=== PATIENT | male | born 1975 | race Caucasian/White ===

== ENCOUNTER 2017-01-04 16:03 | Observation (INO) ==
--- NOTE | 2017-01-04 16:19 | Emergency Department Note ---
Abdominal Pain HPI - General Chief Complaint: Abdominal Pain Stated Complaint: Abdominal pain, back pain, bilateral Flank pain Time Seen by Provider: 01/04/17 16:15 Source: patient Mode of arrival: ambulatory Limitations: no limitations - History of Present Illness HPI Narrative: This patient has had abdominal pain for 10 days. An ultrasound last week that showed gallstones with no gallbladder wall thickening that he did have tenderness suggestive of mild cholecystitis. He called Dr. Souza's office on but they were closing so he hasn't seen him yet. He continues to have pain and nausea. MD Complaint: abdominal pain Onset (ago): day(s) Consistency: constant Location: RUQ Severity: moderate Quality: stabbing Radiation: back Improves with: nothing Worsens with: eating - Related Data Home Medications Medication Instructions Recorded Confirmed trazodone 50 mg tablet 75 mg PO QHS tab 10/26/15 01/04/17 Previous Rx's Medication Instructions Recorded lamotrigine 25 mg tablet See Dose Instructions .ROUTE 10/26/15 .COMPLEX #60 tab HYDROcodone/APAP 5/325MG [[place] 1 tab PO Q4HP PRN #14 tablet 12/27/16 5/325Mg] Omeprazole [PriLOSEC] 20 mg PO BIDAC #30 cap 01/01/17 Allergies Allergy/AdvReac Type Severity Reaction Status Date / Time Erythromycin Base Allergy Intermediate Verified 01/04/17 16:07 penicillin V [From Pen-Vee K] AdvReac Intermediate Verified 01/04/17 16:07 Review of Systems Constitutional: Denies: fever, chills Eyes: Denies: eye pain ENT ED: Denies: ear pain Cardiovascular: Denies: chest pain Respiratory: Denies: cough Gastrointestinal: Reports: abdominal pain, nausea, vomiting Genitourinary: Denies: urgency Musculoskeletal: Reports: back pain Integumentary: Denies: rash Neurological: Denies: headache Abdominal Pain PMH - Past Medical History Medical history: Reports: hypertension, migraine, renal disease, seizures, other Surgical history ED: Reports: appendectomy Psychiatric history: Reports: anxiety, bipolar, depression Family history: Reports: no significant family history - Social History Alcohol use: Reports: Heavy Drug use: Reports: none Physical Exam - General Limitations: no limitations General appearance: alert - Head Head exam: atraumatic - Eye Eye exam: Present: normal appearance - ENT ENT exam: normal exam - Neck Neck exam: Present: normal inspection - Chest Chest inspection: Present: normal inspection - Respiratory Respiratory exam: Present: normal lung sounds bilaterally - Cardiovascular Cardiovascular exam: Present: regular rate, normal rhythm, normal heart sounds - Abdominal Exam Abdominal exam: Present: soft, tenderness. Absent: distention, guarding, rebound, rigidity - Neurological Exam Neurological exam: Present: alert - Psychiatric Psychiatric exam: Present: normal affect - Skin Skin exam: Present: warm, dry Course Vital Signs Temperature 97.0 F L 01/04/17 16:04 Pulse Rate 67 01/04/17 16:04 Respiratory Rate 16 01/04/17 16:04 Blood Pressure 144/75 01/04/17 16:04 Pulse Oximetry (%) 99 01/04/17 16:04 Temperature 97.0 F L 01/04/17 16:04 Pulse Rate 56 L 01/04/17 17:52 Respiratory Rate 18 01/04/17 17:52 Blood Pressure 123/85 01/04/17 17:52 Pulse Oximetry (%) 98 01/04/17 17:52 Abdominal Pain - MDM Narrative Medical decision making narrative: I discussed the case with Dr. Souza the patient will be admitted tonight for cholecystectomy in the morning - Lab Data Lab results reviewed: Yes I reviewed the patient's lab results. Result diagrams: 01/04/17 16:27 01/04/17 16:27 Lab Results 01/04/17 01/04/17 01/04/17 Range/Units 16:27 16:27 16:35 WBC 4.8 (4.5-11.0) K/mcL RBC 4.17 L (4.50-5.90) M/mcL Hgb 13.0 L (13.5-16.5) g/dL Hct 39.6 L (41.0-55.0) % MCV 94.8 (80.0-100.0) fL MCH 31.2 (26.0-34.0) pg MCHC 32.9 (31.0-36.0) g/dL RDW 14.0 (11.5-14.5) % Plt Count 118 L (140-440) K/mcL MPV 9.5 (7.4-10.4) fL Gran % 64.1 (38.0-78.0) % Lymph % (Auto) 23.8 (15.5-49.0) % [place] % (Auto) 7.0 (1.0-9.0) % Eos % (Auto) 4.2 (0.0-7.0) % Baso % (Auto) 0.9 (0.0-2.0) % Gran # 3.1 (1.8-8.0) K/mcL Lymph # 1.1 L (1.5-4.8) K/mcL [place] # 0.3 (0.1-0.9) K/mcL Eos # 0.2 (0.0-0.7) K/mcL Baso # 0 (0.0-0.3) K/mcL Sodium 137 (133-145) mmol/L Potassium 3.5 (3.3-5.1) mmol/L Chloride 102 (96-108) mmol/L Carbon Dioxide 22 (22-30) mmol/L Anion Gap 13.0 (8-16) BUN 3 L (6-20) mg/dl Creatinine 0.7 (0.7-1.2) mg/dl GFR Calculation 117 Glucose 96 (70-105) mg/dL Calcium 8.7 (8.6-10.4) mg/dl Total Bilirubin 1.3 H (0.0-1.0) mg/dL AST 47 H (0-37) U/l ALT 31 (0-40) U/l Alkaline Phosphatase 152 H (39-117) U/L Total Protein 7.5 (5.9-8.4) gm/dL Albumin 3.7 (3.2-5.2) gm/dL Globulin 3.8 H (2.2-3.7) gm/dL Albumin/Globulin Ratio 1.0 (1.0-2.3) Lipase 35 (7-60) U/L Urine Color Yellow Urine Appearance Clear Urine pH 8.0 (5.0-9.0) Ur Specific [place] 1.002 (1.000-1.035) Urine Protein Neg (NEG) mg/dL Urine Glucose (UA) Negative (NEG) mg/dL Urine Ketones Neg (NEG) mg/dL Urine Occult Blood >=1.0 A (<0.03) mg/dL Urine Nitrate Neg (NEG) Urine Bilirubin Neg (NEG) mg/dL Urine Urobilinogen Neg (NEG) mg/dL Ur Leukocyte Esterase Neg (NEG) /uL Urine RBC 18 H (0-1) /hpf Urine WBC 0 (0-4) /hpf Ur Squamous Epith Cells 0 (0-4) /hpf Urine Bacteria 0 (0) /hpf Ur Culture Indicated? No Disposition Clinical Impression: Cholecystitis Disposition: Xfer As Outpt/Obs ([facility]) Condition: Good Time of Disposition: 18:14
[2017-01-04] MEDS ORDERED: 0.9 % SODIUM CHLORIDE 1,000 ML IV ONE (16:20)
[2017-01-04] MEDS ORDERED: ONDANSETRON 4 MG/2 ML VIAL IV ONE (16:20)
[2017-01-04] MEDS: HYDROmorphone 2 MG/ML SYRINGE IV PRN ×3 (16:50→21:47)
[2017-01-04 17:15] LABS: Basophils # (Auto) 0 K/mcL (0.0-0.3); Basophils % (Auto) 0.9 % (0.0-2.0); Eosinophils # (Auto) 0.2 K/mcL (0.0-0.7); Eosinophils % (Auto) 4.2 % (0.0-7.0); Granulocytes % (Auto) 64.1 % (38.0-78.0); Lymphocytes # (Auto) 1.1 K/mcL (1.5-4.8); Lymphocytes % (Auto) 23.8 % (15.5-49.0); Mean Cell Volume 94.8 fL (80.0-100.0); Mean Corpuscular HGB Conc 32.9 g/dL (31.0-36.0); Mean Corpuscular Hemoglobin 31.2 pg (26.0-34.0); Monocytes # (Auto) 0.3 K/mcL (0.1-0.9); Platelet Count 118 K/mcL (140-440); RBC 4.17 M/mcL (4.50-5.90)
[2017-01-04 17:25] LABS: Appearance,Urine CLEAR; Bacteria,Urine 0 /hpf (0); Bilirubin,Urine NEG (NEG); Color,Urine YELLOW; Glucose,Urine (UA) NEGATIVE (NEG); Leukocyte Esterase,Urine NEG /uL (NEG); Nitrate,Urine NEG (NEG); Protein,Urine NEG (NEG); Specific Gravity,Urine 1.002 (1.000-1.035); Urine Blood >=1.0 mg/dL (<0.03); Urine RBC 18 /hpf (0-1); Urine Squamous Epithelial Cell 0 /hpf (0-4); Urine WBC 0 /hpf (0-4); Urobilinogen,Urine NEG (NEG)
[2017-01-04 17:25] LABS: ALT/SGPT 31 U/l (0-40); Albumin 3.7 gm/dL (3.2-5.2); Alkaline Phosphatase 152 U/L (39-117); Blood Urea Nitrogen 3 mg/dl (6-20); Lipase 35 U/L (7-60)
[2017-01-04] MEDS ORDERED: HYDROcodone/APAP (PP) 5/325MG TABLET (#4) PO ONE (18:00)
[2017-01-04] MEDS ORDERED: ONDANSETRON (PP) 4 MG TABLET SL ONE (18:00)
[2017-01-04] MEDS ORDERED: LEVOFLOXACIN 500 MG/100 ML BAG IV ONE (18:14)
[2017-01-04] MEDS ORDERED: HYDROmorphone 2 MG/ML SYRINGE IV PRN (20:01)
[2017-01-04] MEDS ORDERED: PROMETHAZINE 25 MG/ML VIAL IM PRN (20:54)
[2017-01-04] MEDS ORDERED: PANTOPRAZOLE 80 MG in 0.9 % SODIUM CHLORIDE 100 ML IV SCH (21:00)
[2017-01-04] MEDS ORDERED: chlordiazePOXIDE 25 MG CAPSULE PO PRN (21:04)
[2017-01-04] MEDS ORDERED: MAGNESIUM SULFATE 32.48 MEQ in DEXTROSE 5% IN WATER 50 ML IV PRN (21:06)
[2017-01-04] MEDS ORDERED: POTASSIUM PHOSPHATE 40 MEQ in DEXTROSE 5% IN WATER 500 ML IV PRN (21:07)
[2017-01-04] MEDS ORDERED: PROMETHAZINE 25 MG/ML VIAL IV PRN (21:15)
--- NOTE | 2017-01-04 21:21 | XRay Report ---
CLINICAL INFORMATION: Preop COMPARISON: None. FINDINGS:The heart size, mediastinum and pulmonary vessels are unremarkable. The lungs are clear. There are no effusions. The bones and soft tissues are within normal limits. IMPRESSION: Normal chest. Interpreted and Authenticated by: Evelio Monet 01/04/17
[2017-01-04 21:24] LABS: Magnesium 1.7 mg/dL (1.6-2.5); Phosphorous 2.6 mg/dL (2.7-4.5)
[2017-01-04] MEDS: 0.9 % SODIUM CHLORIDE 1,000 ML IV SCH (21:46)
[2017-01-04] MEDS: PANTOPRAZOLE 40 MG VIAL IV SCH (21:47)
[2017-01-04] MEDS ORDERED: MAGNESIUM SULFATE 8.12 MEQ/2 ML VIAL ONE (21:59)
[2017-01-05] MEDS: HYDROmorphone 2 MG/ML SYRINGE IV PRN ×6 (00:07→16:41)
[2017-01-05] MEDS: 0.9 % SODIUM CHLORIDE 1,000 ML IV SCH ×5 (04:04→21:39)
[2017-01-05 06:05] LABS: Basophils # (Auto) 0 K/mcL (0.0-0.3); Basophils % (Auto) 0.9 % (0.0-2.0); Eosinophils # (Auto) 0.2 K/mcL (0.0-0.7); Eosinophils % (Auto) 5.2 % (0.0-7.0); Lymphocytes # (Auto) 1.7 K/mcL (1.5-4.8); Lymphocytes % (Auto) 35.8 % (15.5-49.0); Mean Cell Volume 95.7 fL (80.0-100.0); Mean Corpuscular Hemoglobin 31.6 pg (26.0-34.0); Monocytes # (Auto) 0.4 K/mcL (0.1-0.9); Monocytes % (Auto) 9.1 % (1.0-9.0); Platelet Count 95 K/mcL (140-440); RBC 3.71 M/mcL (4.50-5.90); Red Cell Distribution Width 13.8 % (11.5-14.5)
[2017-01-05 06:46] LABS: ALT/SGPT 24 U/l (0-40); Albumin/Globulin Ratio 0.9 (1.0-2.3); Alkaline Phosphatase 106 U/L (39-117); Blood Urea Nitrogen 4 mg/dl (6-20)
[2017-01-05] MEDS ORDERED: 0.9 % SODIUM CHLORIDE 250 ML IV SCH ×2 (09:00→15:22)
[2017-01-05] MEDS: PANTOPRAZOLE 40 MG VIAL IV SCH (09:34)
--- NOTE | 2017-01-05 09:47 | General Surg History&Physical ---
History of Present Illness Patient information: Note initiated : 01/05/17 at 9:45 am Service Date, if different from initiated Date: [] Patient: Austin Kelley 41 y/o M admitted on 01/04/17 for Abdominal pain, back pain, bilateral Flank pain. Chief Complaint: [] Chief complaint: recurrent abdominal pain HPI: Mr. Kelley is a 41 year old male with known history of gallstone disease. Patient has had symptomatic cholelithiasis for at least 1 year. He did not have any surgery done. Over the past 2 weeks he has had bilateral upper abdominal pain radiating through to his back and localizing in the right upper quadrant. He has had nausea but no vomiting. The pain has been continuous.. He's been seen in the emergency room twice over the last 2 days and his symptoms persist. He has elevated LFTs but he also has a history of alcoholic hepatitis cirrhosis unknown if this is related to his gallbladder. His amylase is normal. Patient admitted and will have a cholecystmy today. Because of some revascularization of his abdominal wall and prior history of a midline incision he is counseled for possible open procedure. Review of Systems - Constitutional fatigue, malaise, weakness, weight loss - EENT Nose, mouth and throat: dizziness, headache(s), no abnormal hearing - Cardiovascular no chest pain with activity, no dyspnea on exertion, no palpatations, no syncope - Respiratory cough, no dyspnea on exertion, no wheezing, no chest congestion - Gastrointestinal abdominal pain, cramping, dyspepsia, heartburn, nausea, vomiting - Genitourinary hematuria, no dysuria, no urinary frequency, no urinary hesitancy, no urinary incontinence, no urinary urgency - Musculoskeletal arthralgias, back pain, myalgias, stiffness, no abnormal gait - Integumentary no new lesions, no pruritus, no rash, no striae, no wounds - Neurological behavioral changes, headache(s), tremor(s), weakness, no abnormal hearing, no syncope - Psychiatric abnormal sleep pattern, anxiety, depression, mood swings - Endocrine fatigue, palpitations, no polydipsia, no polyphagia, no polyuria - Hematologic/Lymphatic no easy bleeding, no easy bruising, no lymphadenopathy - Allergic/Immunologic throat swelling, no tongue swelling, no uticaria, no wheezing, no lip swelling Past History Past medical history: bipolar disorder History of seizures probably alcohol-related Lower extremity radiculopathy History of chronic alcoholism Migraine headaches Mild portal hypertension Lumbar disc disease Hepatosplenomegaly Probable alcoholic liver disease Past surgical history: appendectomy Open treatment and internal fixation left arm Past family history: father due to complications of AIDS Mother due to glioblastoma multiform only child Past social history: ssingle Every day smoker Everyday marijuana user History of alcoholism up to a half gallon per day; states that he stopped in October; unable to verify unemployed Medications and Allergies Home Medications Medication Instructions Recorded Confirmed Type trazodone 50 mg tablet 75 mg PO QHS tab 10/26/15 01/04/17 History HYDROcodone/ACETAMINOPHEN 1 each PO Q4-6HP PRN 01/05/17 01/05/17 History [Hydrocodon-Acetaminophen 5-325] Allergies Allergy/AdvReac Type Severity Reaction Status Date / Time Erythromycin Base Allergy Intermediate Verified 01/04/17 16:07 penicillin V [From Pen-Vee K] AdvReac Intermediate Verified 01/04/17 20:29 Exam Temp Pulse Resp BP Pulse Ox 97.6 F 52 L 16 117/75 97 01/05/17 08:00 01/05/17 08:00 01/05/17 08:00 01/05/17 08:00 01/05/17 08:00 - General physical appearance well developed, no distress, moderate distress, moderate pain, chronically ill, other (vidence of recent weight loss) - Eyes PERRL, normal ocular movement, other (mild icterus) - ENT normal pinna, normal nares, normal mucosa, no hearing loss, no congestion, poor care home - Head Head exam IM: Present: atraumatic, normocephalic - Neck no masses, no bruits, trachea midline, no lymphadectomy, no venous distension - Cardiovascular Cardiovascular exam IM: Present: normal rate and rhythm, JVD, RRR, +S1, +S2. Absent: systolic murmur - Respiratory normal expansion, normal respiratory effort, clear to percussion, clear to auscultation - Abdomen Abdomen: Present: soft, tender (diffuse tenderness and upper abdomen with guarding and rebound in the right upper quadrant; well-healed lower midline incision; redistribution of vascular pattern anterior abdominal wall), bowel sounds Hernia: Present: none - Genitourinary Present: normal penis with no external lesions - Rectum Rectum: Present: no masses - Integumentary Present: no rash, no growths, no abnormal pigmentation - Neurologic Present: normal coordination, normal sensation - Musculoskeletal Present: normal gait, normal posture - Psychiatric Present: oriented to time, oriented to person, oriented to place, speech is normal, memory intact, other (flat affect) Assessment and Plan (1) Cholelithiasis and cholecystitis without obstruction patient counseled for laparoscopic cholecystectomy. He is advi that he may need to have an open procedure. Status: Acute (2) Liver disease, chronic, due to alcohol will treat for delirium tremens if it occurs Status: Acute (3) Portal hypertension Status: Acute (4) Seizure disorder Status: Acute (5) Bipolar disorder Status: Acute
[2017-01-05] MEDS ORDERED: MIDAZOLAM 5 MG/5 ML VIAL IV ONE (11:15)
[2017-01-05] MEDS ORDERED: ROCURONIUM 10 MG/ML ML IV ONE (11:15)
[2017-01-05] MEDS ORDERED: SUCCINYLCHOLINE 20 MG/ML ML IV ONE (11:15)
[2017-01-05] MEDS ORDERED: ONDANSETRON 4 MG/2 ML VIAL IV ONE (11:15)
[2017-01-05] MEDS ORDERED: GLYCOPYRROLATE 0.2 MG/ML VIAL IV ONE (11:15)
[2017-01-05] MEDS ORDERED: fentaNYL 250 MCG/5 ML VIAL IV ONE (11:15)
[2017-01-05] MEDS ORDERED: DEXAMETHASONE 10 MG/ML VIAL IV ONE (11:15)
[2017-01-05] MEDS ORDERED: PROPOFOL 200 MG/20 ML VIAL IV ONE (11:15)
[2017-01-05] MEDS ORDERED: LIDOCAINE HCL/PF 100 MG/5 ML SYRINGE IV ONE (11:15)
[2017-01-05] MEDS ORDERED: KETAMINE 100 MG/ML ML IV ONE (11:15)
[2017-01-05] MEDS ORDERED: METHOCARBAMOL 1,000 MG/10 ML VIAL IV PRN (12:35)
[2017-01-05] MEDS ORDERED: ePHEDrine 50 MG/ML AMPUL IV PRN (12:35)
[2017-01-05] MEDS ORDERED: FLUMAZENIL 0.1 MG/ML ML IV PRN (12:35)
[2017-01-05] MEDS ORDERED: METOPROLOL TARTRATE 5 MG/5 ML VIAL IV PRN (12:35)
[2017-01-05] MEDS ORDERED: MEPERIDINE 25 MG/ML SYRINGE IV PRN (12:35)
[2017-01-05] MEDS ORDERED: PROMETHAZINE 25 MG/ML VIAL IV PRN ×3 (12:35→15:22)
[2017-01-05] MEDS ORDERED: HYDROmorphone 2 MG/ML SYRINGE IV PRN (12:35)
[2017-01-05] MEDS ORDERED: ONDANSETRON 4 MG/2 ML VIAL IV PRN (12:35)
[2017-01-05] MEDS ORDERED: ATROPINE SULFATE 0.4 MG/ML VIAL IV PRN (12:35)
[2017-01-05] MEDS ORDERED: PROMETHAZINE 25 MG/ML VIAL IM ONE (12:35)
[2017-01-05] MEDS ORDERED: diphenhydrAMINE 50 MG/ML VIAL IV PRN (12:35)
[2017-01-05] MEDS ORDERED: IPRATROPIUM/ALBUTEROL 3 ML AMPUL.NEB NEB PRN (12:35)
[2017-01-05] MEDS ORDERED: NALOXONE HCL 0.4 MG/ML VIAL IV PRN (12:35)
[2017-01-05] MEDS ORDERED: BENZOCAINE/MENTHOL 1 LOZENGE PO PRN (12:35)
[2017-01-05] MEDS ORDERED: MEPERIDINE 50 MG/ML SYRINGE IM ONE (12:35)
[2017-01-05] MEDS ORDERED: LACTATED RINGERS 1,000 ML IV SCH (12:45)
--- NOTE | 2017-01-05 13:30 | Brief Operative Note ---
Date of procedure: 01/05/17 Pre-op diagnosis: cholelithiasis with cholecystitis Post-op diagnosis: other (cholelithiasis with cholecystitis; micronodular cirrhosis,portal hypertension) Procedure: laparoscopic cholecystectomy Grafts/Implants: No (j p x1) Anesthesia: GETA Findings: severe micronodular cirrhosis ; acute and chronic cholecystitis; upper abdominal adhesions Complications: none Surgeon: Wendi Souza Estimated blood loss (cc): 30 Specimens Removed/Pathology: other (gajjbladder) Condition: stable Disposition: PACU
[2017-01-05] MEDS: fentaNYL 100 MCG/2 ML VIAL IV PRN ×4 (14:11→14:25)
[2017-01-05] MEDS ORDERED: POTASSIUM PHOSPHATE 40 MEQ in DEXTROSE 5% IN WATER 500 ML IV PRN (15:22)
[2017-01-05] MEDS ORDERED: MAGNESIUM SULFATE 32.48 MEQ in DEXTROSE 5% IN WATER 50 ML IV PRN (15:22)
[2017-01-05] MEDS ORDERED: chlordiazePOXIDE 25 MG CAPSULE PO PRN (15:22)
--- NOTE | 2017-01-05 15:51 | Operative Note ---
DATE OF OPERATION: 01/05/2017 PREOPERATIVE DIAGNOSIS: Cholelithiasis with cholecystitis. POSTOPERATIVE DIAGNOSES: Cholelithiasis with cholecystitis, micronodular cirrhosis, portal hypertension. PROCEDURE: Laparoscopic cholecystectomy. SURGEON: Wendi Souza MD. ANESTHESIA: General endotracheal anesthesia. FINDINGS: Severe micronodular cirrhosis, acute and chronic cholecystitis, mid and upper abdominal adhesions. DESCRIPTION OF PROCEDURE: Under general anesthesia, the patient's abdomen was prepped and draped in the sterile field. A timeout procedure was carried out as per protocol. A supraumbilical midline incision was made. The fascia was opened because of the previous incision. The fascia was dissected down to the omentum. Even after getting down to the omentum, I could not get a free peritoneal space. I therefore made a small incision in the left upper quadrant after the stomach had been desufflated. Veress needle was passed and the peritoneal cavity was successfully entered. The abdomen was insufflated with 3.5 liters of CO2. Once this was done, the peritoneum thinned through the incision, and I was able to make a small incision in the visible peritoneum, and the free peritoneal space was entered. A 12 mm trocar was placed and laparoscope was placed. The patient had severe micronodular cirrhosis with a contracted hard, fibrotic liver and evidence of subacute cholecystitis. Under videoscopic guidance, a 12 mm port and two 5 mm ports were placed in the right subcostal region. The gallbladder was grasped and positioned. Using gentle dissection, the cystic duct was dissected and followed back to the gallbladder. Cystic artery branch was dissected and followed onto the wall of the gallbladder. The cystic duct was then clipped with five clips and divided close to the gallbladder. There were two cystic artery branches that were dissected onto the wall of the gallbladder, clipped with three clips each and divided. Next, using electrocautery and staying very close to the gallbladder and away from the hard, friable liver, the gallbladder was dissected. There were two arterial branches that followed posteriorly and near the tip of the gallbladder. One of these arteries was transected. It was clipped proximal to the incision in the vessel and hemostasis was controlled. The gallbladder was then from the infrahepatic bed. There was a major amount of oozing, but the patient had elevated protime. Irrigation was carried out. It was elected not to place Surgicel in the bed in case the patient presented with postoperative fever and concern for abscess. Most of the bed was hemostatically okay, but there was some oozing from the surface of the liver. He did show evidence of clotting, so a smooth 10-flat drain was placed and brought out through the most lateral incision. CO2 was allowed to escape from the abdomen, and the ports were removed. Peritoneum and fascia at the supraumbilical area was closed with multiple interrupted 0 Vicryls. Other incisions were closed with yuriy. The patient tolerated the procedure well. The drain was secured with 2-0 nylon. Tegaderm dressings were placed. The patient was awakened, extubated and transferred to the postanesthetic care unit in stable, satisfactory condition. LCS:hi Job ID: [id number] Doc ID: [id number] Wendi Souza M.D.
[2017-01-05] MEDS: oxyCODONE HCL 5 MG TABLET PO PRN ×2 (16:20→20:29)
[2017-01-05] MEDS: NICOTINE 21 MG PATCH TOPICAL SCH (16:20)
[2017-01-05] MEDS: PANTOPRAZOLE 40 MG PACKET PO SCH (16:20)
[2017-01-05 16:41] LABS: ALT/SGPT 29 U/l (0-40); Albumin 3.5 gm/dL (3.2-5.2); Alkaline Phosphatase 110 U/L (39-117); Blood Urea Nitrogen 4 mg/dl (6-20)
[2017-01-05] MEDS: LEVOFLOXACIN 750 MG/150 ML BAG IV SCH (16:45)
[2017-01-05] MEDS ORDERED: PANTOPRAZOLE 40 MG PACKET PO SCH (17:00)
[2017-01-05 18:15] LABS: Basophils # (Auto) 0 K/mcL (0.0-0.3); Basophils % (Auto) 0.6 % (0.0-2.0); Eosinophils # (Auto) 0.1 K/mcL (0.0-0.7); Eosinophils % (Auto) 1.9 % (0.0-7.0); Lymphocytes # (Auto) 0.3 K/mcL (1.5-4.8); Lymphocytes % (Auto) 8.8 % (15.5-49.0); Mean Cell Volume 95.7 fL (80.0-100.0); Mean Corpuscular HGB Conc 32.9 g/dL (31.0-36.0); Mean Corpuscular Hemoglobin 31.5 pg (26.0-34.0); Monocytes # (Auto) 0.1 K/mcL (0.1-0.9); Monocytes % (Auto) 1.7 % (1.0-9.0); Platelet Count 96 K/mcL (140-440); Red Cell Distribution Width 14.1 % (11.5-14.5)
[2017-01-05] MEDS: traZODone HCL 50 MG TABLET PO SCH (20:30)
[2017-01-05] MEDS ORDERED: traZODone HCL 50 MG TABLET PO SCH (21:00)
[2017-01-06] MEDS: oxyCODONE HCL 5 MG TABLET PO PRN ×6 (00:43→21:58)
[2017-01-06] MEDS: 0.9 % SODIUM CHLORIDE 1,000 ML IV SCH ×3 (04:28→23:04)
[2017-01-06 06:03] LABS: Basophils # (Auto) 0 K/mcL (0.0-0.3); Basophils % (Auto) 0 % (0.0-2.0); Eosinophils # (Auto) 0.1 K/mcL (0.0-0.7); Eosinophils % (Auto) 0.6 % (0.0-7.0); Granulocytes % (Auto) 92.1 % (38.0-78.0); Lymphocytes # (Auto) 0.4 K/mcL (1.5-4.8); Lymphocytes % (Auto) 4.6 % (15.5-49.0); Mean Cell Volume 95.9 fL (80.0-100.0); Mean Corpuscular HGB Conc 32.8 g/dL (31.0-36.0); Mean Corpuscular Hemoglobin 31.4 pg (26.0-34.0); Monocytes # (Auto) 0.2 K/mcL (0.1-0.9); Monocytes % (Auto) 2.7 % (1.0-9.0); Platelet Count 104 K/mcL (140-440); RBC 3.99 M/mcL (4.50-5.90); Red Cell Distribution Width 13.8 % (11.5-14.5)
[2017-01-06] MEDS: PANTOPRAZOLE 40 MG PACKET PO SCH ×2 (07:30→17:52)
[2017-01-06] MEDS: LEVOFLOXACIN 750 MG/150 ML BAG IV SCH (09:26)
[2017-01-06] MEDS: NICOTINE 21 MG PATCH TOPICAL SCH (09:26)
[2017-01-06] MEDS: HYDROmorphone 2 MG/ML SYRINGE IV PRN (10:29)
[2017-01-06] MEDS ORDERED: 0.9 % SODIUM CHLORIDE 250 ML IV SCH (11:15)
--- NOTE | 2017-01-06 13:25 | Surgical Pathology Report ---
HISTOLOGY SPECIMEN MICROSCOPIC DIAGNOSIS GALLBLADDER, CHOLECYSTECTOMY: -- SUBACUTE AND CHRONIC CHOLECYSTITIS WITH CHOLELITHIASIS. (ACP:jose) PROCEDURAL IMPRESSION Cholelithiasis and cholecystitis. GROSS DESCRIPTION Received in formalin labeled gallbladder, is an 11.3 x 4.9 x 0.7 cm pink-tom gallbladder. The serosa is smooth and glistening with approximately 20% rough and brown-tom. There are multiple yuriy present. The duct is disrupted and opened to approximately 1.6 cm in diameter. The mucosa is velvety, pink-tom with no lesions or masses identified. The wall is up to 0.3 cm thick. Three smooth, black stones are found within the specimen container ranging in size from 0.2 up to 0.8 cm in greatest dimension. Sprinkler Driver sections are submitted in one cassette. (KGW:adj) Electronically Signed by: Miguel Monzon M.D.
--- NOTE | 2017-01-06 17:48 | General Surgery Progress Note ---
Subjective Patient reports: feels better, pain is less, tolerating a regular diet, flatus, bowel movement, afebrile Narrative: Note initiated : 01/06/17 at 5:45 pm Service Date, if different from initiated Date: [] Patient: Austin Kelley 41 y/o M admitted on 01/04/17 for Cholelithiasis & Cholecystitis w/o Obstruction. Chief Complaint: [patient is stable and improved. He is tolerating diet without difficulty. His PT/INR remains elevated and he had more thick bloody drainage this morning. He has received 2 more units of FFP and his drainageis more serous at this time. ] Objective Temp Pulse Resp BP Pulse Ox 99.5 F 75 14 120/63 95 01/06/17 11:20 01/06/17 11:20 01/06/17 11:20 01/06/17 11:20 01/06/17 11:20 - Additional Data Intake & Output - Last 24 hours: Intake & Output 01/04/17 01/05/17 01/06/17 01/07/17 05:59 05:59 05:59 05:59 Intake Total 1000 / 2100 8513 / 8513 2827 / 2827 Output Total 8043 / 8043 3865 / 3865 Balance 1000 / 2100 470 / 470 -1038 / -1038 Weight 242 lb 247 lb 8 oz 247 lb 8 oz - Additional Exam patient is alert awake and appropriate Chest clear Heart regular no ectopy or gallop Abdomen mildly distended but soft with active bowel sounds, serosanguineous CEDRICK drainage but much thinner than earlier this morning extremities no increased edema - Labs 01/06/17 04:20 01/05/17 13:55 Medical - PN: A/P - Time Spent With Patient Total time spent is greater than 50% in coordination of care (as documented) at patient's floor/unit and/or counseling patient: (1) Cholelithiasis and cholecystitis without obstruction Status: Acute Assessment and plan: stable and improved We'll check PT/INR in the morning and if improved we'll consider discharge home Current Visit: Yes (2) Liver disease, chronic, due to alcohol Status: Acute Current Visit: Yes (3) Portal hypertension Status: Acute Current Visit: Yes (4) Seizure disorder Status: Acute Current Visit: Yes (5) Bipolar disorder Status: Acute Current Visit: Yes
[2017-01-06] MEDS ORDERED: 0.9 % SODIUM CHLORIDE 1,000 ML IV SCH (18:45)
[2017-01-06] MEDS: traZODone HCL 50 MG TABLET PO SCH (21:51)
[2017-01-07] MEDS: HYDROmorphone 2 MG/ML SYRINGE IV PRN ×4 (00:40→10:24)
[2017-01-07] MEDS: oxyCODONE HCL 5 MG TABLET PO PRN ×4 (02:01→13:59)
[2017-01-07 05:44] LABS: Basophils # (Auto) 0 K/mcL (0.0-0.3); Basophils % (Auto) 0.2 % (0.0-2.0); Eosinophils # (Auto) 0.2 K/mcL (0.0-0.7); Eosinophils % (Auto) 1.7 % (0.0-7.0); Granulocytes % (Auto) 78.1 % (38.0-78.0); Lymphocytes # (Auto) 1.3 K/mcL (1.5-4.8); Lymphocytes % (Auto) 13.1 % (15.5-49.0); Mean Cell Volume 95.3 fL (80.0-100.0); Mean Corpuscular Hemoglobin 31.4 pg (26.0-34.0); Monocytes # (Auto) 0.7 K/mcL (0.1-0.9); Monocytes % (Auto) 6.9 % (1.0-9.0); Platelet Count 118 K/mcL (140-440); RBC 3.89 M/mcL (4.50-5.90); Red Cell Distribution Width 13.8 % (11.5-14.5)
[2017-01-07] MEDS: PANTOPRAZOLE 40 MG PACKET PO SCH (06:56)
[2017-01-07] MEDS: LEVOFLOXACIN 750 MG/150 ML BAG IV SCH (07:46)
[2017-01-07] MEDS: NICOTINE 21 MG PATCH TOPICAL SCH (09:14)
--- NOTE | 2017-01-07 14:25 | Discharge Summary ---
Providers - Providers Patient information: Note initiated : 01/07/17 at 2:21 pm Service Date, if different from initiated Date: [] Patient: Austin Kelley 41 y/o M admitted on 01/04/17 for Cholelithiasis & Cholecystitis w/o Obstruction. Chief Complaint: [] Date of admission: 02/01/17 Discharge date: 01/07/17 Attending physician: Wendi Souza Hospitalization Hospital course: +41-year-old male with known history of gallstone disease who presents with recurrent abdominal pain nausea vomiting and elevated LFTs. Patient had normal amylase. He also had evidence of portal hypertension with hepatosplenomegaly. He has a history of heavy alcohol use up to a half gallon of liquor per day. He states that he stopped in October. He was felt to have acute cholecystitis. He underwent laparoscopic cholecystectomy on 05 January 2017. He was found cholecystitisand severe micronodular cirrhosis. He had elevated PT INR and received 4 units of fresh frozen plasma while hospital. His bleeding from his liver bed has improved and his drainage is now mostly serosanguineous. He has had a slow rise in his serum ammonia. I discussed low- protein diet with him and he will be discharged on Chronulac. He is advised to follow-up with his primary physician for his cirrhotic liver disease. I will see him in the office in 2 weeks. 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 Bipolar disorder Reason for admission: cholecystitis with cholelithiasis Procedures: laparoscopic cholecystectomy Pertinent studies/significant findings: CT of abdomen and pelvis with contrast Complications: none Exam Temp Pulse Resp BP Pulse Ox 97.4 F L 58 L 12 104/56 95 01/07/17 12:00 01/07/17 12:00 01/07/17 12:00 01/07/17 12:00 01/07/17 12:00 - General physical appearance well developed, well nourished, no distress, moderate pain - Eyes PERRL, normal ocular movement, icteric - ENT normal pinna, normal nares, normal mucosa, no hearing loss, no congestion - Head Head exam IM: Present: atraumatic, normocephalic - Neck no masses, no bruits, trachea midline, no lymphadectomy, no venous distension - Cardiovascular Cardiovascular exam IM: Present: normal rate and rhythm - Respiratory normal expansion, normal respiratory effort, clear to percussion, clear to auscultation - Abdomen Abdomen: Present: soft, tender (incisions look good; mild distention good active bowel sounds; serous sanguinous drainage and CEDRICK), bowel sounds, distended Hernia: Present: none - Genitourinary Present: normal penis with no external lesions - Integumentary Present: no rash, no growths, no abnormal pigmentation - Neurologic Present: normal coordination, normal sensation, other (o evidence of asterixis) - Musculoskeletal Present: normal gait, normal posture - Psychiatric Present: oriented to time, oriented to person, oriented to place, speech is normal, memory intact Discharge Plan - Patient/Caregiver Discharge Instructions Activity: increase activity as tolerated (on discharge) Diet: Regular Diet (liver failure diet) Additional Instructions: liver failure diet as directed by dietitian Prescriptions: Lactulose [Cephulac] 20 gm PO TID #1 oral.tejinder - Follow up Plan Follow up with: Wendi Souza MD [Physician] - Disposition: Home, Self-Care Prognosis: Fair Rehab Potential: Fair I certify that the patient requires SNF services.: No Overall status at discharge: patient is not back to baseline Pending Studies Resuscitation Status Full Code Diet Regular Diet Start ThuJan 05 Dinner Hydromorphone HCl (Dilaudid) 1 mg IV Q2HP PRN PRN Reason: Pain Last Admin: 01/07/17 10:24 Dose: 1 mg Admin: 01/07/17 07:46 Dose: 1 mg Admin: 01/07/17 03:11 Dose: 1 mg Admin: 01/07/17 00:40 Dose: 1 mg Admin: 01/06/17 10:29 Dose: 1 mg Admin: 01/05/17 16:41 Dose: 1 mg Levofloxacin (Levaquin) 750 mg in 150 mls @ 100 mls/hr IV DAILY WENDY Last Admin: 01/07/17 07:46 Dose: 100 mls/hr Infusion: 01/06/17 10:56 Dose: 100 mls/hr Admin: 01/06/17 09:26 Dose: 100 mls/hr Infusion: 01/05/17 18:15 Dose: 100 mls/hr Admin: 01/05/17 16:45 Dose: 100 mls/hr Sodium Chloride (Sodium Chloride 0.9%) 1,000 mls @ 20 mls/hr IV .Q24H [facility] Last Admin: 01/07/17 08:58 Dose: Not Given Nicotine (Nicoderm) 21 mg TOPICAL DAILY@1000 [facility] Last Admin: 01/07/17 09:14 Dose: 21 mg Admin: 01/06/17 09:26 Dose: 21 mg Admin: 01/05/17 16:20 Dose: 21 mg Oxycodone HCl (Roxicodone) 10 mg PO Q4HP PRN PRN Reason: Pain Last Admin: 01/07/17 13:59 Dose: 10 mg Admin: 01/07/17 10:26 Dose: 10 mg Admin: 01/07/17 05:57 Dose: 10 mg Admin: 01/07/17 02:01 Dose: 10 mg Admin: 01/06/17 21:58 Dose: 10 mg Admin: 01/06/17 17:52 Dose: 10 mg Admin: 01/06/17 13:33 Dose: 10 mg Admin: 01/06/17 08:52 Dose: 10 mg Admin: 01/06/17 04:28 Dose: 10 mg Admin: 01/06/17 00:43 Dose: 10 mg Admin: 01/05/17 20:29 Dose: 10 mg Admin: 01/05/17 16:20 Dose: 10 mg Pantoprazole Sodium (Protonix) 40 mg PO BIDAC [facility] Last Admin: 01/07/17 06:56 Dose: 40 mg Admin: 01/06/17 17:52 Dose: 40 mg Admin: 01/06/17 07:30 Dose: 40 mg Admin: 01/05/17 16:20 Dose: 40 mg Trazodone HCl (Desyrel) 75 mg PO QHS [facility] Last Admin: 01/06/17 21:51 Dose: 75 mg Admin: 01/05/17 20:30 Dose: 75 mg Shift Summary 01/07/17 04:11 Shift Summary by Casandra Perry Pt A&O, makes needs known. Up ad jessica in room. Walked in hallway today independently, denied dizziness, weakness. Dressings to abd with small drainage , can change prn. IV to right wrist and RAC, infusing w/o difficulties. Voiding per urinal, large amounts. Abd soft, tender, no distention noted. CEDRICK to RLQ, pt concerned about CEDRICK drainage but this has not increased from yesterday. Received 2 bags of FFP at 1300 on 01/06 for low platelet count. Pt states increased pain this shift, has received dilaudid 1mg X2 along with oxycodone Q4hrs. VSS. Initialized on 01/07/17 04:11 - END OF NOTE
== END 2017-01-07 15:55 | disposition home or self-care (01) ==
LOC: MEDSUR 16:03 → ED 16:03 → MEDSUR 20:12
PROVIDERS: ADMIT Family Medicine Adult Medicine; ATTEND Family Medicine Adult Medicine